=== PATIENT | male | born 1955 | race Caucasian/White ===

== ENCOUNTER 2018-07-17 11:18 | Emergency (ER) | payer MEDICARE, OTHER, SELFPAY ==
[2018-07-17 11:27] VITALS: BP 154/89; PULSE 78; RESP 17; TEMP 36.4; O2SAT 98; BMI 27.6
--- NOTE | 2018-07-17 11:37 | PC.NURSE ---
Pt had sex last night, when condom broke. Pt states his partners has multiple partners. Pt reports he is unsure if she has any disease. Because of the unknown he would like to be treated prophylactic. He isn't concerned about any other STD' just HIV.
--- NOTE | 2018-07-17 12:04 | ED.GENADULT ---
HPI - General Adult <KERRY Alvarado - Last Filed: 07/17/18 21:51> General Chief complaint: Blood/Body fluid exposure Stated complaint: POSSIBLE EXPOSURE HIV Time Seen by Provider: 07/17/18 11:37 Source: patient Mode of arrival: ambulatory Limitations: no limitations History of Present Illness HPI narrative: 63-year-old healthy male that is a nonsmoker here for concern of exposure to HIV. He reports that last night he had a sexual encounter with a woman that he reports is promiscuous with multiple partners as he states that she is a swinger. He denies any knowledge that she has any sexual transmitted diseases. He denies having any symptoms. He is requesting a prophylaxis for HIV. He reports that last night he was having vaginal sex with her when his condom broke. He denies any other sexual encounters or contacts. Related Data Previous Rx's Medication Instructions Recorded dolutegravir 50 mg PO DAILY #28 tab 07/17/18 emtricitabine-tenofovir (TDF) 1 tab PO DAILY #28 tab 07/17/18 [Truvada] Allergies Allergy/AdvReac Type Severity Reaction Status Date / Time hydrocodone AdvReac Unknown NAUSEA/VOMI Verified 07/17/18 12:28 TING Review of Systems <KERRY Alvarado - Last Filed: 07/17/18 21:51> Review of Systems Concern for possible HIV exposure Constitutional Denies chills, Denies fever(s), Denies lethargy and Denies weakness Eyes Denies change in vision, Denies eye discharge, Denies irritation and Denies loss of vision ENT Ears, Nose, Mouth, and Throat: Denies change in voice, Denies neck pain and Denies sore throat Cardiovascular Denies chest pain, Denies irregular heart rhythm, Denies lightheadedness, Denies palpitations, Denies dyspnea, Denies dyspnea on exertion and Denies orthopnea Respiratory Denies cough, Denies dyspnea, Denies dyspnea on exertion and Denies wheezing Gastrointestinal Gastrointestinal: Denies abdominal pain, Denies change in bowel habits, Denies diarrhea, Denies nausea and Denies vomiting Genitourinary Denies hematuria, Denies flank pain, Denies urinary incontinence and Denies urinary urgency Musculoskeletal Denies neck pain Integumentary/Breasts Denies pruritus, Denies erythema, Denies rash and Denies wounds Neurologic Denies confusion, Denies loss of vision and Denies weakness Psychiatric Denies anxiety, Denies confusion, Denies depression, Denies homicidal ideation and Denies suicidal ideation Endocrine Denies palpitations Hematologic/Lymphatic Denies easy bruising Allergic/Immunologic Denies wheezing Exam <KERRY Alvarado - Last Filed: 07/17/18 21:51> Initial Vital Signs Initial Vital Signs: Vital Signs Temperature 97.6 F 07/17/18 11:27 Pulse Rate 78 07/17/18 11:27 Respiratory Rate 17 07/17/18 11:27 Blood Pressure 154/89 H 07/17/18 11:27 Pulse Oximetry 98 07/17/18 11:27 Const General: cooperative and well developed Nutritional Appearance: well nourished Orientation: alert, awake, oriented x3 and not confused HENMT Mouth: oral mucosae normal and moist mucous membranes Eyes General: appearance normal, both eyes and all related structures Eyelids: eyelids normal Conjunctivae: conjunctivae normal Sclera: sclerae normal Pupils: PERRL EOM: EOM intact bilaterally Resp Effort & Inspection: normal respiratory effort, able to speak in complete sentences, no respiratory distress and no use of accessory muscles Auscultation: clear to auscultation bilaterally, no rales, no rhonchi and no wheezes Cardio Rate: regular rate Rhythm: regular rhythm Heart Sounds: no click, no gallops, no murmurs and no rubs Pulses: normal peripheral pulses GI Inspection: non-distended Palpation: soft, no hepatosplenomegaly, No guarding, No pulsatile mass and No tender Auscultation: normal bowel sounds External: normal external exam, uncircumcised, no lacerations and no lesions Penis: normal penis Meatus: meatus normal and no meatla discharge Scrotum: scrotum normal Testes: normal Skin General: no rashes or lesions noted, No jaundice and No petechiae <Shamika Petit DO - Last Filed: 07/18/18 07:49> Initial Vital Signs Initial Vital Signs: Vital Signs Temperature 97.6 F 07/17/18 11:27 Pulse Rate 78 07/17/18 11:27 Respiratory Rate 17 07/17/18 11:27 Blood Pressure 154/89 H 07/17/18 11:27 Pulse Oximetry 98 07/17/18 11:27 Course <KERRY Alvarado - Last Filed: 07/17/18 21:51> Orders Ordered: Discontinued Medications Azithromycin (Zithromax) 1,000 mg PO NOW ONE Stop: 07/17/18 12:22 Last Admin: 07/17/18 13:05 Dose: 1,000 mg Ceftriaxone Sodium (Rocephin) 250 mg IM NOW ONE Stop: 07/17/18 12:22 Last Admin: 07/17/18 13:05 Dose: 250 mg Diphtheria/Tetanus/Acell Pertussis (Adacel) 0.5 ml IM .ONCE ONE Stop: 07/17/18 12:22 Last Admin: 07/17/18 13:05 Dose: 0.5 ml Hepatitis B Vaccine (Engerix-B) 20 mcg IM .ONCE ONE Stop: 07/17/18 12:22 Last Admin: 07/17/18 13:08 Dose: 20 mcg Vital Signs - 8 hr 07/17/18 14:52 Pulse Rate 72 Respiratory Rate 14 Blood Pressure 158/93 H Pulse Oximetry 97 <Shamika Petit DO - Last Filed: 07/18/18 07:49> Orders Ordered: Discontinued Medications Azithromycin (Zithromax) 1,000 mg PO NOW ONE Stop: 07/17/18 12:22 Last Admin: 07/17/18 13:05 Dose: 1,000 mg Ceftriaxone Sodium (Rocephin) 250 mg IM NOW ONE Stop: 07/17/18 12:22 Last Admin: 07/17/18 13:05 Dose: 250 mg Diphtheria/Tetanus/Acell Pertussis (Adacel) 0.5 ml IM .ONCE ONE Stop: 07/17/18 12:22 Last Admin: 07/17/18 13:05 Dose: 0.5 ml Hepatitis B Vaccine (Engerix-B) 20 mcg IM .ONCE ONE Stop: 07/17/18 12:22 Last Admin: 07/17/18 13:08 Dose: 20 mcg Vital Signs - 8 hr 07/17/18 14:52 Pulse Rate 72 Respiratory Rate 14 Blood Pressure 158/93 H Pulse Oximetry 97 Medical Decision Making <KERRY Alvarado - Last Filed: 07/17/18 21:51> Lab Data Result diagrams: 07/17/18 12:48 07/17/18 12:48 Lab Results 0107/17/18 07/17/18 Range/Units 12:40 12:40 12:48 WBC 8.2 (4.5-11.0) X10^3/uL RBC 5.53 (4.5-5.9) X10^6/uL Hgb 16.3 (13.5-17.5) g/dL Hct 48.3 (41-53) % MCV 87.4 (80-100) fL MCH 29.4 (26-34) PG MCHC 33.7 (30-36) % RDW 13.6 (11.6-14.8) % Plt Count 309 (150-400) X10^3/uL Neut % (Auto) 72.2 (50-75) % Lymph % (Auto) 21.1 L (25-40) % [place] % (Auto) 5.6 (3-14) % Eos % (Auto) 0.7 L (2-4) % Baso % (Auto) 0.4 (0-2) % Neut # (Auto) 5900 (8806-0807) /uL Lymph # (Auto) 1700 (0612-9884) /uL [place] # (Auto) 500 (0-900) /uL Eos # (Auto) 100 (0-450) /uL Baso # (Auto) 0 (0-100) /uL Sodium (137-145) mmol/L Potassium (3.4-5.1) mmol/L Chloride (98-107) mmol/L Carbon Dioxide (22-32) mmol/L BUN (9-20) mg/dL Creatinine (0.66-1.25) mg/dL Estimated GFR (>60) mL/min BUN/Creatinine Ratio (6-22) Glucose (80-110) mg/dL Calcium (8.4-10.2) mg/dL Total Bilirubin (0.2-1.3) mg/dL AST (17-59) IU/L ALT (21-72) IU/L Alkaline Phosphatase (38-126) U/L Total Protein (6.3-8.2) g/dL Albumin (3.5-5.0) g/dL Globulin (1.7-4.1) g/dL Albumin/Globulin Ratio (1.0-2.8) Urine Color Yellow Urine Appearance Clear Urine pH 7.5 (4.5-8.0) Ur Specific [place] 1.015 (1.000-1.035) Urine Protein Negative (Negative) Urine Glucose (UA) Negative (Negative) g/dL Urine Ketones Trace H (NEGATIVE) Urine Occult Blood Negative (Negative) Urine Nitrate Negative (Negative) Urine Bilirubin Negative (NEGATIVE) Urine Urobilinogen 0.2 (0.2) E.U./dL Ur Leukocyte Esterase Negative (NEGATIVE) Urine RBC None seen (0-5/HPF) Urine WBC 0-1/hpf (0-5/HPF) Ur Squamous Epith Cells 0-1 /hpf Amorphous Sediment 1+ Urine Bacteria None seen (None) Urine Mucus 2+ H (Negative) Ur Culture Indicated? Cult not indicated Ur Chlamydia DNA (PCR) Not detected Hepatitis C Antibody (NEGATIVE) s/c HIV 1&2 Antibody (NEGATIVE) N gonorrhoeae DNA (PCR) Not detected 07/17/18 07/17/18 Range/Units 12:48 12:48 WBC (4.5-11.0) X10^3/uL RBC (4.5-5.9) X10^6/uL Hgb (13.5-17.5) g/dL Hct (41-53) % MCV (80-100) fL MCH (26-34) PG MCHC (30-36) % RDW (11.6-14.8) % Plt Count (150-400) X10^3/uL Neut % (Auto) (50-75) % Lymph % (Auto) (25-40) % [place] % (Auto) (3-14) % Eos % (Auto) (2-4) % Baso % (Auto) (0-2) % Neut # (Auto) (2331-8957) /uL Lymph # (Auto) (4829-2690) /uL [place] # (Auto) (0-900) /uL Eos # (Auto) (0-450) /uL Baso # (Auto) (0-100) /uL Sodium 141 (137-145) mmol/L Potassium 3.6 (3.4-5.1) mmol/L Chloride 102 (98-107) mmol/L Carbon Dioxide 27 (22-32) mmol/L BUN 11 (9-20) mg/dL Creatinine 1.00 (0.66-1.25) mg/dL Estimated GFR > 60.0 (>60) mL/min BUN/Creatinine Ratio 11.0 (6-22) Glucose 120 H (80-110) mg/dL Calcium 9.7 (8.4-10.2) mg/dL Total Bilirubin 0.9 (0.2-1.3) mg/dL AST 41 (17-59) IU/L ALT 53 (21-72) IU/L Alkaline Phosphatase 84 (38-126) U/L Total Protein 8.6 H (6.3-8.2) g/dL Albumin 5.0 (3.5-5.0) g/dL Globulin 3.6 (1.7-4.1) g/dL Albumin/Globulin Ratio 1.4 (1.0-2.8) Urine Color Urine Appearance Urine pH (4.5-8.0) Ur Specific [place] (1.000-1.035) Urine Protein (Negative) Urine Glucose (UA) (Negative) g/dL Urine Ketones (NEGATIVE) Urine Occult Blood (Negative) Urine Nitrate (Negative) Urine Bilirubin (NEGATIVE) Urine Urobilinogen (0.2) E.U./dL Ur Leukocyte Esterase (NEGATIVE) Urine RBC (0-5/HPF) Urine WBC (0-5/HPF) Ur Squamous Epith Cells Amorphous Sediment Urine Bacteria (None) Urine Mucus (Negative) Ur Culture Indicated? Ur Chlamydia DNA (PCR) Hepatitis C Antibody Negative (NEGATIVE) s/c HIV 1&2 Antibody Negative (NEGATIVE) N gonorrhoeae DNA (PCR) MDM Narrative Medical decision making narrative: CBC and Chem panel were obtained were unremarkable. Urine Chlamydia and gonorrhea was obtained and was negative. HIV antibodies were negative. RPR, hepatitis panel and herpes are pending. Tetanus and Hep b vaccine was given in the emergency room. He was prophylactically treated with azithromycin and Rocephin. Risk benefit discussion of HIV prophylaxis was obtained and patient states that desires to have HIV prophylaxis. HIV prophylaxis is prescribed. He is encouraged to follow up with primary care provider in the next couple weeks for re-evaluation and results of other pending test. For any worsening symptoms return emergency room. <Shamika Petit DO - Last Filed: 07/18/18 07:49> Lab Data Lab Results 07/17/18 07/17/18 07/17/18 Range/Units 12:40 12:40 12:48 WBC 8.2 (4.5-11.0) X10^3/uL RBC 5.53 (4.5-5.9) X10^6/uL Hgb 16.3 (13.5-17.5) g/dL Hct 48.3 (41-53) % MCV 87.4 (80-100) fL MCH 29.4 (26-34) PG MCHC 33.7 (30-36) % RDW 13.6 (11.6-14.8) % Plt Count 309 (150-400) X10^3/uL Neut % (Auto) 72.2 (50-75) % Lymph % (Auto) 21.1 L (25-40) % [place] % (Auto) 5.6 (3-14) % Eos % (Auto) 0.7 L (2-4) % Baso % (Auto) 0.4 (0-2) % Neut # (Auto) 5900 (2891-6959) /uL Lymph # (Auto) 1700 (1161-5471) /uL [place] # (Auto) 500 (0-900) /uL Eos # (Auto) 100 (0-450) /uL Baso # (Auto) 0 (0-100) /uL Sodium (137-145) mmol/L Potassium (3.4-5.1) mmol/L Chloride (98-107) mmol/L Carbon Dioxide (22-32) mmol/L BUN (9-20) mg/dL Creatinine (0.66-1.25) mg/dL Estimated GFR (>60) mL/min BUN/Creatinine Ratio (6-22) Glucose (80-110) mg/dL Calcium (8.4-10.2) mg/dL Total Bilirubin (0.2-1.3) mg/dL AST (17-59) IU/L ALT (21-72) IU/L Alkaline Phosphatase (38-126) U/L Total Protein (6.3-8.2) g/dL Albumin (3.5-5.0) g/dL Globulin (1.7-4.1) g/dL Albumin/Globulin Ratio (1.0-2.8) Urine Color Yellow Urine Appearance Clear Urine pH 7.5 (4.5-8.0) Ur Specific [place] 1.015 (1.000-1.035) Urine Protein Negative (Negative) Urine Glucose (UA) Negative (Negative) g/dL Urine Ketones Trace H (NEGATIVE) Urine Occult Blood Negative (Negative) Urine Nitrate Negative (Negative) Urine Bilirubin Negative (NEGATIVE) Urine Urobilinogen 0.2 (0.2) E.U./dL Ur Leukocyte Esterase Negative (NEGATIVE) Urine RBC None seen (0-5/HPF) Urine WBC 0-1/hpf (0-5/HPF) Ur Squamous Epith Cells 0-1 /hpf Amorphous Sediment 1+ Urine Bacteria None seen (None) Urine Mucus 2+ H (Negative) Ur Culture Indicated? Cult not indicated Ur Chlamydia DNA (PCR) Not detected Hepatitis C Antibody (NEGATIVE) s/c HIV 1&2 Antibody (NEGATIVE) N gonorrhoeae DNA (PCR) Not detected 07/17/18 07/17/18 Range/Units 12:48 12:48 WBC (4.5-11.0) X10^3/uL RBC (4.5-5.9) X10^6/uL Hgb (13.5-17.5) g/dL Hct (41-53) % MCV (80-100) fL MCH (26-34) PG MCHC (30-36) % RDW (11.6-14.8) % Plt Count (150-400) X10^3/uL Neut % (Auto) (50-75) % Lymph % (Auto) (25-40) % [place] % (Auto) (3-14) % Eos % (Auto) (2-4) % Baso % (Auto) (0-2) % Neut # (Auto) (2783-4650) /uL Lymph # (Auto) (7265-4163) /uL [place] # (Auto) (0-900) /uL Eos # (Auto) (0-450) /uL Baso # (Auto) (0-100) /uL Sodium 141 (137-145) mmol/L Potassium 3.6 (3.4-5.1) mmol/L Chloride 102 (98-107) mmol/L Carbon Dioxide 27 (22-32) mmol/L BUN 11 (9-20) mg/dL Creatinine 1.00 (0.66-1.25) mg/dL Estimated GFR > 60.0 (>60) mL/min BUN/Creatinine Ratio 11.0 (6-22) Glucose 120 H (80-110) mg/dL Calcium 9.7 (8.4-10.2) mg/dL Total Bilirubin 0.9 (0.2-1.3) mg/dL AST 41 (17-59) IU/L ALT 53 (21-72) IU/L Alkaline Phosphatase 84 (38-126) U/L Total Protein 8.6 H (6.3-8.2) g/dL Albumin 5.0 (3.5-5.0) g/dL Globulin 3.6 (1.7-4.1) g/dL Albumin/Globulin Ratio 1.4 (1.0-2.8) Urine Color Urine Appearance Urine pH (4.5-8.0) Ur Specific [place] (1.000-1.035) Urine Protein (Negative) Urine Glucose (UA) (Negative) g/dL Urine Ketones (NEGATIVE) Urine Occult Blood (Negative) Urine Nitrate (Negative) Urine Bilirubin (NEGATIVE) Urine Urobilinogen (0.2) E.U./dL Ur Leukocyte Esterase (NEGATIVE) Urine RBC (0-5/HPF) Urine WBC (0-5/HPF) Ur Squamous Epith Cells Amorphous Sediment Urine Bacteria (None) Urine Mucus (Negative) Ur Culture Indicated? Ur Chlamydia DNA (PCR) Hepatitis C Antibody Negative (NEGATIVE) s/c HIV 1&2 Antibody Negative (NEGATIVE) N gonorrhoeae DNA (PCR) Discharge Plan Departure Patient Disposition: Home Clinical Impression: Concern about STD in male without diagnosis Discharge Date/Time: 07/17/18 15:02 Interventions: ED Discharge Assessment Last Done: 07/17/18 14:52 Instructions: Facts About Sexually Transmitted Infections Activity Restrictions/Additional Instructions: Laboratory results today are unremarkable. Year given a prophylactic antibiotics for gonorrhea and chlamydia today in the emergency room. You also given a vaccine for hepatitis-B and tetanus. Follow up with primary care provider later this week for re-evaluation and results of other tests that are currently pending. Prescription for HIV prophylaxis is given for to medications for 28 days use as directed. For any worsening symptoms return emergency room. Prescriptions: New emtricitabine-tenofovir (TDF) [Truvada] 200-300 mg tablet 1 tab PO DAILY Qty: 28 RF: 0 dolutegravir 50 mg tablet 50 mg PO DAILY Qty: 28 RF: 0 Referrals: [facility] [Provider Group] <Shamika Petit DO - Last Filed: 07/18/18 07:49> Cosign ED Attending Cosignature Attestation: I was immediately available in the department for consultation. This documentation has been reviewed and I agree with assessment and plan. Supervised by Shamika Petit DO
[2018-07-17 12:52] LABS: Bacteria Urine None Seen; RBC Urine None Seen (0-5/HPF)
[2018-07-17 12:54] LABS: Add Manual Diff / Slide Review NO; Basophils Absolute Auto 0 /uL (0-100); Basophils Percent Auto 0.4 % (0-2); Eosinophils Absolute Auto 100 /uL (0-450); Eosinophils Percent Auto 0.7 % (2-4); Hematocrit 48.3 % (41-53); Hemoglobin 16.3 g/dL (13.5-17.5); Lymphocytes Absolute Auto 1700 /uL (1100-4500); Lymphocytes Percent Auto 21.1 % (25-40); Mean Corpuscular HGB Conc 33.7 % (30-36); Mean Corpuscular Hemoglobin 29.4 PG (26-34); Mean Corpuscular Volume 87.4 fL (80-100); Monocytes Absolute Auto 500 /uL (0-900); Monocytes Percent Auto 5.6 % (3-14); Neutrophils Absolute Auto 5900 /uL (1500-7000); Neutrophils Percent Auto 72.2 % (50-75); Platelet Count 309 X10^3/uL (150-400); Red Blood Cell Count 5.53 X10^6/uL (4.5-5.9); Red Cell Distribution Width 13.6 % (11.6-14.8); White Blood Cell Count 8.2 X10^3/uL (4.5-11.0)
[2018-07-17 12:55] LABS: Appearance Urine UA CLEAR; Bilirubin Urine UA NEGATIVE (NEGATIVE); Color Urine UA YELLOW; Glucose Urine UA NEGATIVE (Negative); Ketones Urine UA TRACE (NEGATIVE); Leukocyte Esterase Urine UA NEGATIVE (NEGATIVE); Nitrite Urine UA NEGATIVE (Negative); Occult Blood Urine UA NEGATIVE (Negative); Protein Urine UA NEGATIVE (Negative); Specific Gravity Urine UA 1.015 (1.000-1.035); Urobilinogen Urine UA 0.2 E.U./dL (0.2); pH Urine UA 7.5 (4.5-8.0)
[2018-07-17 13:01] LABS: Alanine Aminotransferase 53 IU/L (21-72); Albumin Globulin Ratio 1.4 (1.0-2.8); Alkaline Phosphatase 84 U/L (38-126); Aspartate Aminotransferase 41 IU/L (17-59); Bilirubin Total 0.9 mg/dL (0.2-1.3); Blood Urea Nitrogen 11 mg/dL (9-20); Calcium 9.7 mg/dL (8.4-10.2); Carbon Dioxide 27 mmol/L (22-32); Chloride 102 mmol/L (98-107); Estimated Glomerular Filt Rate > 60.0 mL/min (>60); Globulin 3.6 g/dL (1.7-4.1); Glucose 120 mg/dL (80-110); HEMOLYSIS < 15 (0-50); Potassium 3.6 mmol/L (3.4-5.1); Sodium 141 mmol/L (137-145); Total Protein 8.6 g/dL (6.3-8.2)
[2018-07-17 13:02] LABS: Amorphous Sediment Urine 1+; Squamous Epithelial Cell Urine 0-1 /HPF; WBC Urine 0-1/HPF (0-5/HPF)
[2018-07-17 13:03] LABS: Culture Indicated Urine Cult Not Indicated; Mucus Urine 2+ (Negative)
[2018-07-17] MEDS: TET,DIPH,PERTUSS(ACELL),VAC/PF 0.5 ML SYRINGE IM (13:05)
[2018-07-17] MEDS: AZITHROMYCIN 250 MG TABLET 1000 MG PO (13:05)
[2018-07-17] MEDS: cefTRIAXone 500 MG VIAL 250 MG IM (13:05)
[2018-07-17] MEDS: HEPATITIS B VAC (ENGERIX-B) 10 MCG/0.5 ML VIAL 20 MCG IM (13:08)
[2018-07-17 14:02] LABS: HIV 1 and 2 Antibody NEGATIVE (NEGATIVE); Hep C Virus Ab w/Reflex Quant NEGATIVE s/c (NEGATIVE)
[2018-07-17 14:25] LABS: Urine N gonorrhoeae NOT DETECTED
--- NOTE | 2018-07-17 14:26 | ED_ITS ---
HPI - General Adult <KERRY Alvarado - Last Filed: 07/17/18 21:51> General Chief complaint: Blood/Body fluid exposure Stated complaint: POSSIBLE EXPOSURE HIV Time Seen by Provider: 07/17/18 11:37 Source: patient Mode of arrival: ambulatory Limitations: no limitations History of Present Illness HPI narrative: 63-year-old healthy male that is a nonsmoker here for concern of exposure to HIV. He reports that last night he had a sexual encounter with a woman that he reports is promiscuous with multiple partners as he states that she is a swinger. He denies any knowledge that she has any sexual transmitted diseases. He denies having any symptoms. He is requesting a prophylaxis for HIV. He reports that last night he was having vaginal sex with her when his condom broke. He denies any other sexual encounters or contacts. Related Data Previous Rx's Medication Instructions Recorded dolutegravir 50 mg PO DAILY #28 tab 07/17/18 emtricitabine-tenofovir (TDF) 1 tab PO DAILY #28 tab 07/17/18 [Truvada] Allergies Allergy/AdvReac Type Severity Reaction Status Date / Time hydrocodone AdvReac Unknown NAUSEA/VOMI Verified 07/17/18 12:28 TING Review of Systems <KERRY Alvarado - Last Filed: 07/17/18 21:51> Review of Systems Concern for possible HIV exposure Constitutional Denies chills, Denies fever(s), Denies lethargy and Denies weakness Eyes Denies change in vision, Denies eye discharge, Denies irritation and Denies loss of vision ENT Ears, Nose, Mouth, and Throat: Denies change in voice, Denies neck pain and Denies sore throat Cardiovascular Denies chest pain, Denies irregular heart rhythm, Denies lightheadedness, Denies palpitations, Denies dyspnea, Denies dyspnea on exertion and Denies orthopnea Respiratory Denies cough, Denies dyspnea, Denies dyspnea on exertion and Denies wheezing Gastrointestinal Gastrointestinal: Denies abdominal pain, Denies change in bowel habits, Denies diarrhea, Denies nausea and Denies vomiting Genitourinary Denies hematuria, Denies flank pain, Denies urinary incontinence and Denies urinary urgency Musculoskeletal Denies neck pain Integumentary/Breasts Denies pruritus, Denies erythema, Denies rash and Denies wounds Neurologic Denies confusion, Denies loss of vision and Denies weakness Psychiatric Denies anxiety, Denies confusion, Denies depression, Denies homicidal ideation and Denies suicidal ideation Endocrine Denies palpitations Hematologic/Lymphatic Denies easy bruising Allergic/Immunologic Denies wheezing Exam <KERRY Alvarado - Last Filed: 07/17/18 21:51> Initial Vital Signs Initial Vital Signs: Vital Signs Temperature 97.6 F 07/17/18 11:27 Pulse Rate 78 07/17/18 11:27 Respiratory Rate 17 07/17/18 11:27 Blood Pressure 154/89 H 07/17/18 11:27 Pulse Oximetry 98 07/17/18 11:27 Const General: cooperative and well developed Nutritional Appearance: well nourished Orientation: alert, awake, oriented x3 and not confused HENMT Mouth: oral mucosae normal and moist mucous membranes Eyes General: appearance normal, both eyes and all related structures Eyelids: eyelids normal Conjunctivae: conjunctivae normal Sclera: sclerae normal Pupils: PERRL EOM: EOM intact bilaterally Resp Effort & Inspection: normal respiratory effort, able to speak in complete sentences, no respiratory distress and no use of accessory muscles Auscultation: clear to auscultation bilaterally, no rales, no rhonchi and no wheezes Cardio Rate: regular rate Rhythm: regular rhythm Heart Sounds: no click, no gallops, no murmurs and no rubs Pulses: normal peripheral pulses GI Inspection: non-distended Palpation: soft, no hepatosplenomegaly, No guarding, No pulsatile mass and No tender Auscultation: normal bowel sounds External: normal external exam, uncircumcised, no lacerations and no lesions Penis: normal penis Meatus: meatus normal and no meatla discharge Scrotum: scrotum normal Testes: normal Skin General: no rashes or lesions noted, No jaundice and No petechiae <Shamika Petit DO - Last Filed: 07/18/18 07:49> Initial Vital Signs Initial Vital Signs: Vital Signs Temperature 97.6 F 07/17/18 11:27 Pulse Rate 78 07/17/18 11:27 Respiratory Rate 17 07/17/18 11:27 Blood Pressure 154/89 H 07/17/18 11:27 Pulse Oximetry 98 07/17/18 11:27 Course <KERRY Alvarado - Last Filed: 07/17/18 21:51> Orders Ordered: Discontinued Medications Azithromycin (Zithromax) 1,000 mg PO NOW ONE Stop: 07/17/18 12:22 Last Admin: 07/17/18 13:05 Dose: 1,000 mg Ceftriaxone Sodium (Rocephin) 250 mg IM NOW ONE Stop: 07/17/18 12:22 Last Admin: 07/17/18 13:05 Dose: 250 mg Diphtheria/Tetanus/Acell Pertussis (Adacel) 0.5 ml IM .ONCE ONE Stop: 07/17/18 12:22 Last Admin: 07/17/18 13:05 Dose: 0.5 ml Hepatitis B Vaccine (Engerix-B) 20 mcg IM .ONCE ONE Stop: 07/17/18 12:22 Last Admin: 07/17/18 13:08 Dose: 20 mcg Vital Signs - 8 hr 07/17/18 14:52 Pulse Rate 72 Respiratory Rate 14 Blood Pressure 158/93 H Pulse Oximetry 97 <Shamika Petit DO - Last Filed: 07/18/18 07:49> Orders Ordered: Discontinued Medications Azithromycin (Zithromax) 1,000 mg PO NOW ONE Stop: 07/17/18 12:22 Last Admin: 07/17/18 13:05 Dose: 1,000 mg Ceftriaxone Sodium (Rocephin) 250 mg IM NOW ONE Stop: 07/17/18 12:22 Last Admin: 07/17/18 13:05 Dose: 250 mg Diphtheria/Tetanus/Acell Pertussis (Adacel) 0.5 ml IM .ONCE ONE Stop: 07/17/18 12:22 Last Admin: 07/17/18 13:05 Dose: 0.5 ml Hepatitis B Vaccine (Engerix-B) 20 mcg IM .ONCE ONE Stop: 07/17/18 12:22 Last Admin: 07/17/18 13:08 Dose: 20 mcg Vital Signs - 8 hr 07/17/18 14:52 Pulse Rate 72 Respiratory Rate 14 Blood Pressure 158/93 H Pulse Oximetry 97 Medical Decision Making <KERRY Alvarado - Last Filed: 07/17/18 21:51> Lab Data Result diagrams: 07/17/18 12:48 07/17/18 12:48 Lab Results 0107/17/18 07/17/18 Range/Units 12:40 12:40 12:48 WBC 8.2 (4.5-11.0) X10^3/uL RBC 5.53 (4.5-5.9) X10^6/uL Hgb 16.3 (13.5-17.5) g/dL Hct 48.3 (41-53) % MCV 87.4 (80-100) fL MCH 29.4 (26-34) PG MCHC 33.7 (30-36) % RDW 13.6 (11.6-14.8) % Plt Count 309 (150-400) X10^3/uL Neut % (Auto) 72.2 (50-75) % Lymph % (Auto) 21.1 L (25-40) % [place] % (Auto) 5.6 (3-14) % Eos % (Auto) 0.7 L (2-4) % Baso % (Auto) 0.4 (0-2) % Neut # (Auto) 5900 (2923-3862) /uL Lymph # (Auto) 1700 (4335-9378) /uL [place] # (Auto) 500 (0-900) /uL Eos # (Auto) 100 (0-450) /uL Baso # (Auto) 0 (0-100) /uL Sodium (137-145) mmol/L Potassium (3.4-5.1) mmol/L Chloride (98-107) mmol/L Carbon Dioxide (22-32) mmol/L BUN (9-20) mg/dL Creatinine (0.66-1.25) mg/dL Estimated GFR (>60) mL/min BUN/Creatinine Ratio (6-22) Glucose (80-110) mg/dL Calcium (8.4-10.2) mg/dL Total Bilirubin (0.2-1.3) mg/dL AST (17-59) IU/L ALT (21-72) IU/L Alkaline Phosphatase (38-126) U/L Total Protein (6.3-8.2) g/dL Albumin (3.5-5.0) g/dL Globulin (1.7-4.1) g/dL Albumin/Globulin Ratio (1.0-2.8) Urine Color Yellow Urine Appearance Clear Urine pH 7.5 (4.5-8.0) Ur Specific [place] 1.015 (1.000-1.035) Urine Protein Negative (Negative) Urine Glucose (UA) Negative (Negative) g/dL Urine Ketones Trace H (NEGATIVE) Urine Occult Blood Negative (Negative) Urine Nitrate Negative (Negative) Urine Bilirubin Negative (NEGATIVE) Urine Urobilinogen 0.2 (0.2) E.U./dL Ur Leukocyte Esterase Negative (NEGATIVE) Urine RBC None seen (0-5/HPF) Urine WBC 0-1/hpf (0-5/HPF) Ur Squamous Epith Cells 0-1 /hpf Amorphous Sediment 1+ Urine Bacteria None seen (None) Urine Mucus 2+ H (Negative) Ur Culture Indicated? Cult not indicated Ur Chlamydia DNA (PCR) Not detected Hepatitis C Antibody (NEGATIVE) s/c HIV 1&2 Antibody (NEGATIVE) N gonorrhoeae DNA (PCR) Not detected 07/17/18 07/17/18 Range/Units 12:48 12:48 WBC (4.5-11.0) X10^3/uL RBC (4.5-5.9) X10^6/uL Hgb (13.5-17.5) g/dL Hct (41-53) % MCV (80-100) fL MCH (26-34) PG MCHC (30-36) % RDW (11.6-14.8) % Plt Count (150-400) X10^3/uL Neut % (Auto) (50-75) % Lymph % (Auto) (25-40) % [place] % (Auto) (3-14) % Eos % (Auto) (2-4) % Baso % (Auto) (0-2) % Neut # (Auto) (8043-0011) /uL Lymph # (Auto) (0745-3771) /uL [place] # (Auto) (0-900) /uL Eos # (Auto) (0-450) /uL Baso # (Auto) (0-100) /uL Sodium 141 (137-145) mmol/L Potassium 3.6 (3.4-5.1) mmol/L Chloride 102 (98-107) mmol/L Carbon Dioxide 27 (22-32) mmol/L BUN 11 (9-20) mg/dL Creatinine 1.00 (0.66-1.25) mg/dL Estimated GFR > 60.0 (>60) mL/min BUN/Creatinine Ratio 11.0 (6-22) Glucose 120 H (80-110) mg/dL Calcium 9.7 (8.4-10.2) mg/dL Total Bilirubin 0.9 (0.2-1.3) mg/dL AST 41 (17-59) IU/L ALT 53 (21-72) IU/L Alkaline Phosphatase 84 (38-126) U/L Total Protein 8.6 H (6.3-8.2) g/dL Albumin 5.0 (3.5-5.0) g/dL Globulin 3.6 (1.7-4.1) g/dL Albumin/Globulin Ratio 1.4 (1.0-2.8) Urine Color Urine Appearance Urine pH (4.5-8.0) Ur Specific [place] (1.000-1.035) Urine Protein (Negative) Urine Glucose (UA) (Negative) g/dL Urine Ketones (NEGATIVE) Urine Occult Blood (Negative) Urine Nitrate (Negative) Urine Bilirubin (NEGATIVE) Urine Urobilinogen (0.2) E.U./dL Ur Leukocyte Esterase (NEGATIVE) Urine RBC (0-5/HPF) Urine WBC (0-5/HPF) Ur Squamous Epith Cells Amorphous Sediment Urine Bacteria (None) Urine Mucus (Negative) Ur Culture Indicated? Ur Chlamydia DNA (PCR) Hepatitis C Antibody Negative (NEGATIVE) s/c HIV 1&2 Antibody Negative (NEGATIVE) N gonorrhoeae DNA (PCR) MDM Narrative Medical decision making narrative: CBC and Chem panel were obtained were unremarkable. Urine Chlamydia and gonorrhea was obtained and was negative. HIV antibodies were negative. RPR, hepatitis panel and herpes are pending. Tetanus and Hep b vaccine was given in the emergency room. He was prophylactically treated with azithromycin and Rocephin. Risk benefit discussion of HIV prophylaxis was obtained and patient states that desires to have HIV prophylaxis. HIV prophylaxis is prescribed. He is encouraged to follow up with primary care provider in the next couple weeks for re-evaluation and results of other pending test. For any worsening symptoms return emergency room. <Shamika Petit DO - Last Filed: 07/18/18 07:49> Lab Data Lab Results 07/17/18 07/17/18 07/17/18 Range/Units 12:40 12:40 12:48 WBC 8.2 (4.5-11.0) X10^3/uL RBC 5.53 (4.5-5.9) X10^6/uL Hgb 16.3 (13.5-17.5) g/dL Hct 48.3 (41-53) % MCV 87.4 (80-100) fL MCH 29.4 (26-34) PG MCHC 33.7 (30-36) % RDW 13.6 (11.6-14.8) % Plt Count 309 (150-400) X10^3/uL Neut % (Auto) 72.2 (50-75) % Lymph % (Auto) 21.1 L (25-40) % [place] % (Auto) 5.6 (3-14) % Eos % (Auto) 0.7 L (2-4) % Baso % (Auto) 0.4 (0-2) % Neut # (Auto) 5900 (9280-0506) /uL Lymph # (Auto) 1700 (1402-1748) /uL [place] # (Auto) 500 (0-900) /uL Eos # (Auto) 100 (0-450) /uL Baso # (Auto) 0 (0-100) /uL Sodium (137-145) mmol/L Potassium (3.4-5.1) mmol/L Chloride (98-107) mmol/L Carbon Dioxide (22-32) mmol/L BUN (9-20) mg/dL Creatinine (0.66-1.25) mg/dL Estimated GFR (>60) mL/min BUN/Creatinine Ratio (6-22) Glucose (80-110) mg/dL Calcium (8.4-10.2) mg/dL Total Bilirubin (0.2-1.3) mg/dL AST (17-59) IU/L ALT (21-72) IU/L Alkaline Phosphatase (38-126) U/L Total Protein (6.3-8.2) g/dL Albumin (3.5-5.0) g/dL Globulin (1.7-4.1) g/dL Albumin/Globulin Ratio (1.0-2.8) Urine Color Yellow Urine Appearance Clear Urine pH 7.5 (4.5-8.0) Ur Specific [place] 1.015 (1.000-1.035) Urine Protein Negative (Negative) Urine Glucose (UA) Negative (Negative) g/dL Urine Ketones Trace H (NEGATIVE) Urine Occult Blood Negative (Negative) Urine Nitrate Negative (Negative) Urine Bilirubin Negative (NEGATIVE) Urine Urobilinogen 0.2 (0.2) E.U./dL Ur Leukocyte Esterase Negative (NEGATIVE) Urine RBC None seen (0-5/HPF) Urine WBC 0-1/hpf (0-5/HPF) Ur Squamous Epith Cells 0-1 /hpf Amorphous Sediment 1+ Urine Bacteria None seen (None) Urine Mucus 2+ H (Negative) Ur Culture Indicated? Cult not indicated Ur Chlamydia DNA (PCR) Not detected Hepatitis C Antibody (NEGATIVE) s/c HIV 1&2 Antibody (NEGATIVE) N gonorrhoeae DNA (PCR) Not detected 07/17/18 07/17/18 Range/Units 12:48 12:48 WBC (4.5-11.0) X10^3/uL RBC (4.5-5.9) X10^6/uL Hgb (13.5-17.5) g/dL Hct (41-53) % MCV (80-100) fL MCH (26-34) PG MCHC (30-36) % RDW (11.6-14.8) % Plt Count (150-400) X10^3/uL Neut % (Auto) (50-75) % Lymph % (Auto) (25-40) % [place] % (Auto) (3-14) % Eos % (Auto) (2-4) % Baso % (Auto) (0-2) % Neut # (Auto) (2790-4266) /uL Lymph # (Auto) (4192-7526) /uL [place] # (Auto) (0-900) /uL Eos # (Auto) (0-450) /uL Baso # (Auto) (0-100) /uL Sodium 141 (137-145) mmol/L Potassium 3.6 (3.4-5.1) mmol/L Chloride 102 (98-107) mmol/L Carbon Dioxide 27 (22-32) mmol/L BUN 11 (9-20) mg/dL Creatinine 1.00 (0.66-1.25) mg/dL Estimated GFR > 60.0 (>60) mL/min BUN/Creatinine Ratio 11.0 (6-22) Glucose 120 H (80-110) mg/dL Calcium 9.7 (8.4-10.2) mg/dL Total Bilirubin 0.9 (0.2-1.3) mg/dL AST 41 (17-59) IU/L ALT 53 (21-72) IU/L Alkaline Phosphatase 84 (38-126) U/L Total Protein 8.6 H (6.3-8.2) g/dL Albumin 5.0 (3.5-5.0) g/dL Globulin 3.6 (1.7-4.1) g/dL Albumin/Globulin Ratio 1.4 (1.0-2.8) Urine Color Urine Appearance Urine pH (4.5-8.0) Ur Specific [place] (1.000-1.035) Urine Protein (Negative) Urine Glucose (UA) (Negative) g/dL Urine Ketones (NEGATIVE) Urine Occult Blood (Negative) Urine Nitrate (Negative) Urine Bilirubin (NEGATIVE) Urine Urobilinogen (0.2) E.U./dL Ur Leukocyte Esterase (NEGATIVE) Urine RBC (0-5/HPF) Urine WBC (0-5/HPF) Ur Squamous Epith Cells Amorphous Sediment Urine Bacteria (None) Urine Mucus (Negative) Ur Culture Indicated? Ur Chlamydia DNA (PCR) Hepatitis C Antibody Negative (NEGATIVE) s/c HIV 1&2 Antibody Negative (NEGATIVE) N gonorrhoeae DNA (PCR) Discharge Plan Departure Patient Disposition: Home Clinical Impression: Concern about STD in male without diagnosis Discharge Date/Time: 07/17/18 15:02 Interventions: ED Discharge Assessment Last Done: 07/17/18 14:52 Instructions: Facts About Sexually Transmitted Infections Activity Restrictions/Additional Instructions: Laboratory results today are unremarkable. Year given a prophylactic antibiotics for gonorrhea and chlamydia today in the emergency room. You also given a vaccine for hepatitis-B and tetanus. Follow up with primary care provider later this week for re-evaluation and results of other tests that are currently pending. Prescription for HIV prophylaxis is given for to medications for 28 days use as directed. For any worsening symptoms return emergency room. Prescriptions: New emtricitabine-tenofovir (TDF) [Truvada] 200-300 mg tablet 1 tab PO DAILY Qty: 28 RF: 0 dolutegravir 50 mg tablet 50 mg PO DAILY Qty: 28 RF: 0 Referrals: [facility] [Provider Group] <Shamika Petit DO - Last Filed: 07/18/18 07:49> Cosign ED Attending Cosignature Attestation: I was immediately available in the department for consultation. This documentation has been reviewed and I agree with assessment and plan. Supervised by Shamika Petit DO
[2018-07-17 14:27] LABS: Urine Chlamydia NOT DETECTED
[2018-07-17 14:52] VITALS: BP 158/93; PULSE 72; RESP 14; O2SAT 97
[2018-07-20 13:14] LABS: HSV 1 IgM Screen Negative (Negative); HSV 2 IgM Screen Negative (Negative)
[2018-07-20 14:45] LABS: Hepatitis B Surf Ab Qualitativ Nonreactive (Nonreactive)
[2018-07-20 16:00] LABS: RPR Screen Nonreactive (Nonreactive)
== END 2018-07-17 15:02 | disposition home or self-care (01) ==
PROVIDERS: Emergency Medicine; Emergency Provider Nurse Practitioner Family
DX: Z20.2 Contact with and (suspected) exposure to infections with a predominantly sexual mode of transmission (principal)
CPT/HCPCS: 36415; 80053; 81001; 85025; 86592; 86694; 86703; 86706; 86803; 87491; 87591; 90471; 90472; 90746; 96372; 99282; 99283; 90715; J0696

== ENCOUNTER → 2019-04-25 07:49 | Outpatient (CLI) | payer MEDICARE, OTHER, SELFPAY ==
--- NOTE | 2019-04-25 | DI.MRI.S_ITS ---
PROCEDURE: MR KNEE LT WO CON INDICATIONS: Pain in left knee TECHNIQUE: Noncontrast sagittal PD fast spin echo and T2 fast spin echo with fat saturation, sagittal 3-D FLASH with fat saturation; coronal T1 spin echo and PD fast spin echo with fat saturation, and axial PD fast spin echo with fat saturation through the knee. COMPARISON: None. FINDINGS: Image quality: Excellent. Menisci: Medial meniscal tear involving the body and posterior horn with marked truncation of free margin and abnormal signal extending to the undersurface. Lateral meniscus intact. Cruciate ligaments: Anterior cruciate ligament appears intact. Posterior cruciate ligament appears intact. Medial structures: The medial collateral ligament appears intact. Semimembranosus tendon appears intact. Visualized portions of the pes anserinus tendons appear normal. No abnormal bursal fluid. Lateral structures: The lateral collateral ligament demonstrates thickening and intrasubstance signal change in keeping with low grade sprain, statistically chronic, although technically age indeterminate. Biceps femoris tendon appears intact. Popliteus tendon grossly unremarkable. Iliotibial band appears intact. Anterior structures: Prepatellar and superficial infrapatellar subcutaneous edema/fluid. Quadriceps tendon intact. Medial and lateral patellofemoral ligaments intact. Patellar tendon appears intact. Hoffa's fat pad unremarkable. Bones and cartilage: No focal marrow contusion or discrete low signal fracture line. Within the medial compartment, diffuse partial-thickness loss of the femoral and tibial cartilage with subchondral marrow edema/early cystic change in the femoral condyle Within the lateral compartment, intrasubstance signal change of the tibial articular cartilage with underlying subchondral marrow edema. The femoral cartilage demonstrates no definite focal defect. Within the patellofemoral compartment, no focal articular cartilage defect Joint space: No pathologic joint effusion. Small Lawton cyst measuring 2 cm in the cephalocaudad dimension No specific evidence of intra-articular loose body. IMPRESSION: Medial meniscal tear involving body and posterior horn tear. Prepatellar and superficial infrapatellar subcutaneous edema/fluid. Degenerative joint disease as above, most pronounced within the medial compartment Small Lawton's cyst. Dictated by: Mark Figueroa M.D. on 04/25/2019 at 11:01 Approved by: Mark Figueroa M.D. on 04/25/2019 at 11:11
== END ==
PROVIDERS: Visit Provider Physician Assistant Medical
DX: M25.562 Pain in left knee (principal); S83.242A Other tear of medial meniscus, current injury, left knee, initial encounter; M17.12 Unilateral primary osteoarthritis, left knee; M71.22 Synovial cyst of popliteal space [Baker], left knee; R26.81 Unsteadiness on feet
CPT/HCPCS: 73721

== ENCOUNTER → 2020-03-28 10:04 | Outpatient (CLI) | payer MEDICARE, OTHER, SELFPAY ==
--- NOTE | 2020-03-28 10:07 | DI.RAD.S_ITS ---
PROCEDURE: XR WRIST RT 2V INDICATIONS: RIGHT WRIST PAIN TECHNIQUE: To views of the wrist were acquired. COMPARISON: None. FINDINGS: Bones: No fractures or dislocations. No suspicious bony lesions. Scaphoid view: Not requested. Soft tissues: No suspicious soft tissue calcifications. IMPRESSION: No fracture. No osseous lesion. If symptoms and/or clinical suspicion for pathology persists, further assessment with repeat radiographs (7-10 days) or advanced imaging (e.g. CT, MRI or bone scan) may be helpful. Dictated by: Lizet Hancock MD, PhD on 03/28/2020 at 17:25 Approved by: Lizet Hancock MD, PhD on 03/28/2020 at 17:25
--- NOTE | 2020-03-28 10:07 | DI.RAD.S_ITS ---
PROCEDURE: XR HAND RT 2V INDICATIONS: RIGHT WRIST PAIN TECHNIQUE: To views of the hand(s) acquired. COMPARISON: None. FINDINGS: Bones: No fractures or dislocations. Carpal bones are normally aligned. No suspicious bony lesions. Soft tissues: No suspicious soft tissue calcifications. IMPRESSION: No fracture. No osseous lesion. If symptoms and/or clinical suspicion for pathology persists, further assessment with repeat radiographs (7-10 days) or advanced imaging (e.g. CT, MRI or bone scan) may be helpful. Dictated by: Lizet Hancock MD, PhD on 03/28/2020 at 17:25 Approved by: Lizet Hancock MD, PhD on 03/28/2020 at 17:26
== END ==
PROVIDERS: PCP Physician Assistant Medical; Referring Provider Physician Assistant Medical; Visit Provider Physician Assistant Medical
DX: M25.531 Pain in right wrist (principal)
CPT/HCPCS: 73100; 73120

== ENCOUNTER → 2020-06-03 14:30 | Outpatient (CLI) | payer MEDICARE, OTHER, SELFPAY ==
[2020-06-03 15:19] LABS: COVID19 -Nasal RAPID Negative (Negative)
== END ==
PROVIDERS: PCP Physician Assistant Medical; Visit Provider Physician Assistant
DX: Z11.59 Encounter for screening for other viral diseases (principal)
CPT/HCPCS: 87635

== ENCOUNTER 2020-06-05 09:18 | Day surgery (SDC) | payer MEDICARE, OTHER, SELFPAY ==
[2020-06-05] VITALS (7 sets, daily range): BP systolic 124–153; BP diastolic 76–87; PULSE 67–80; RESP 12–17; TEMP 36.1–36.9; O2SAT 95–98; BMI 25.2
--- NOTE | 2020-06-05 | PATH_ITS ---
[facility] Accession Number: [id number] . 01 Material submitted: . PART A: gastrointestinal site - STOMACH PART B: body - NO SITE DESIGNATED . 01 Clinical history: . SDC A: RULE OUT HP B: EOE . 02 Diagnosis: A. Stomach, Biopsy: Gastric antral mucosa with mild chronic inflammation. Negative for Helicobacter organisms by immunohistochemistry. Negative for intestinal metaplasia. Negative for dysplasia or malignancy. . B. Esophagus, Biopsy: Squamous epithelium with mild reactive features of reflux esophagitis. Intraepithelial eosinophils are not increased. Negative for fungal organisms on AB/PAS stain. Negative for dysplasia or malignancy. [facility] 06/10/2020 1404 Local . 02 Electronically signed: . Constantin Lopez MD, PhD, Pathologist NPI- [id number] . 01 Gross description: . Part A: STOMACH: Received in formalin are 2 fragment(s) of sherman, soft tissue measuring 0.3 x 0.3 x 0.2 cm to 0.2 x 0.1 x 0.1 cm submitted entirely in 1 cassette(s) Part B: NO SITE DESIGNATED: Received in formalin are 2 fragment(s) of sherman, soft tissue measuring 0.4 x 0.2 x 0.1 cm to 0.2 x 0.2 x 0.1 cm submitted entirely in 1 cassette(s) /QBJ 06/06/2020 0636 Local . 02 Microscopic: . A) An immunohistochemical stain was performed to evaluate for Helicobacter organisms and is negative. The control stain showed appropriate reactivity. . B) An AB/PAS stain is performed to evaluate for fungal organisms, and is negative. A control stain shows appropriate reactivity. . * This test was developed and its performance characteristics determined by [employer]. It has not been cleared or approved by the U.S. Food and Drug Administration. The FDA has determined that such clearance or approval is not necessary. This test is used for clinical purposes. It should not be regarded as investigational or for research. . 02 Pathologist provided ICD-10: R13.10, K29.70, K21.9 . 02 CPT . 069466, 764938, V27504, 810091 Performed at: 01 [facility] [address] [address], [place], [place] [id number] MD Rene Olivera MD Phone: [phone] Performed at: 02 [facility] [id number] [place] [id number] MD Angeles Burr MD Phone: [phone]
[2020-06-05] MEDS: SODIUM CHLORIDE 0.9% 1,000 ML 100 ML IV (09:54)
--- NOTE | 2020-06-05 10:15 | PM.PREOP ---
Pre-operative Note COVID-19 COVID-19 status: Negative Interval Note History & Physical reviewed/Exam performed by Physician: Yes Changes to H&P: No ASA Class (for procedural sedation): II
--- NOTE | 2020-06-05 10:16 | PM.OP.ENDO ---
Operative Date/Time/Diagnoses Date of procedure: 06/05/20 Pre-op diagnosis: See indication and findings Procedure & Clinicians Study performed: EGD Same procedure as scheduled: Yes Indications: GE reflux and dysphagia in the cervical position Surgeon: Karthik Roth Procedure Notes Procedure in detail: After informed consent was obtained the patient was placed in left lateral decubitus position. The video upper scope was placed into the oropharynx and with the patient's help swallowed into the esophagus. The esophagus stomach and duodenum were carefully examined. On withdrawal retroflexed view the GE junction was performed. The scope was removed. The patient tolerated the procedure well. Blood loss none Complications none Sedation Total sedation time 11 minutes Versed 8 mg fentanyl 100 micro g IV titration Findings 1. Feline like esophagus in the mid esophagus. Biopsies taken to rule out eosinophilic esophagitis 2. LAC to D esophagitis between 35 and 38 cm. At least 75% of circumference involved. Old scarring also present. No clear stenosis. 3. 4 cm hiatal hernia without Ki lesions 4. Patchy erythema in the antrum biopsies taken to rule out Helicobacter 5. Peptic duodenitis in the bulb and D1. Multiple erosions seen. Tomy is to get on his Nexium and use it every day. We will be in touch about his pathology report. He will eventually need a follow-up endoscopy in 12 weeks to prove distal esophageal healing. He should have telehealth follow-up with me in 6-8 weeks.
[2020-06-05] MEDS: fentaNYL 250 MCG/5 ML INJ IV (10:45)
[2020-06-05] MEDS: MIDAZOLAM 5 MG/5 ML VIAL IV (10:45)
== END 2020-06-05 11:52 | disposition home or self-care (01) ==
PROVIDERS: PCP Physician Assistant Medical; Referring Provider Internal Medicine Gastroenterology; Visit Provider Internal Medicine Gastroenterology
PROC: 0DJ08ZZ Inspection of Upper Intestinal Tract, Via Natural or Artificial Opening Endoscopic (ICD-10-PCS; CPT 43235; principal; 2020-06-05 09:00)
DX: K29.50 Unspecified chronic gastritis without bleeding (principal); K44.9 Diaphragmatic hernia without obstruction or gangrene; K29.80 Duodenitis without bleeding; K21.00 Gastro-esophageal reflux disease with esophagitis, without bleeding
CPT/HCPCS: 43239; J2250; J3010

== ENCOUNTER → 2020-09-23 11:01 | Outpatient (CLI) | payer MEDICARE, OTHER, SELFPAY ==
[2020-09-23 14:33] LABS: COVID19 -Nasal RAPID Negative (Negative)
== END ==
PROVIDERS: PCP Physician Assistant Medical; Visit Provider Physician Assistant
DX: Z20.822 Contact with and (suspected) exposure to COVID-19 (principal)
CPT/HCPCS: 87635; C9803

== ENCOUNTER 2020-09-25 09:10 | Day surgery (SDC) | payer MEDICARE, OTHER, SELFPAY ==
[2020-09-25] VITALS (8 sets, daily range): BP systolic 137–152; BP diastolic 82–98; PULSE 66–69; RESP 11–18; TEMP 36.1–36.6; O2SAT 94–99; BMI 24.9
--- NOTE | 2020-09-25 | PATH_ITS ---
[facility] Accession Number: [id number] . 01 Material submitted: . esophagus - ESOPHAGUS . 01 Clinical history: . A: RULE OUT HYMAN'S . 02 Diagnosis: Esophagus, Biopsy: Proximal gastric-type mucosa with mild chronic inflammation. Negative for specialized intestinal metaplasia on AB/PAS stain. Negative for dysplasia or malignancy. [facility] 10/01/2020 1354 Local . 02 Electronically signed: . Constantin Lopez MD, PhD, Pathologist NPI- [id number] . 01 Gross description: . ESOPHAGUS: Received in formalin is 1 fragment(s) of sherman, soft tissue measuring 0.2 x 0.2 x 0.1 cm submitted entirely in 1 cassette(s) /CAMILA 09/27/2020 2318 Local . 02 Microscopic: . An AB/PAS stain is performed to evaluate for specialized intestinal metaplasia, and is negative for goblet cells. A control stain shows appropriate reactivity. . 02 Pathologist provided ICD-10: K20.80 . 02 CPT . 796262, 804149 Performed at: 01 [facility] [address], [place], [place] [id number] MD Rene Olivera MD Phone: [phone] Performed at: 02 [facility] [address] [place], [place] [id number] MD Angeles Burr MD Phone: [phone]
[2020-09-25] MEDS: SODIUM CHLORIDE 0.9% 1,000 ML 150 ML IV (09:59)
--- NOTE | 2020-09-25 10:28 | PM.HP.1 ---
History of Present Illness History of Present Illness Date Patient Seen: 09/25/20 Chief complaint: SDC Narrative: History of severe esophagitis need to check for complete healing Patient History Medical History (Updated 06/05/20 @ 09:36 by Angeles Lyons RN) Problems with swallowing Family & Social History Social History: household members spouse Tobacco & Substance use: Smoking Status Never smoker alcohol intake never Substance Use Type does not use Meds Home Medications and Allergies Home Medications Medication Instructions Recorded Confirmed Type albuterol sulfate [ProAir HFA] 2 puff INHALATION Q6H PRN 06/05/20 09/25/20 History fluticasone propion-salmeterol 1 inh INHALATION BID 06/05/20 09/25/20 History [Advair Diskus] esomeprazole magnesium 20 mg PO DAILY 09/25/20 09/25/20 History famotidine 20 mg PO BEDTIME 09/25/20 09/25/20 History phentermine 37.5 mg PO DAILY 09/25/20 09/25/20 History tadalafil 5 mg PO DAILY 09/25/20 09/25/20 History Allergies Allergy/AdvReac Type Severity Reaction Status Date / Time hydrocodone AdvReac Unknown NAUSEA/VOMI Verified 09/25/20 10:00 TING Exam Vital Signs (past 8 hours): - 09/25/20 10:06 Temperature 98 F Pulse Rate 67 Respiratory Rate 16 Blood Pressure 139/84 Pulse Oximetry 99 Oxygen Delivery Method Room Air Narrative Exam Narrative: Oropharynx free of lesions Chest clear to auscultation percussion Cardiac exam reveals no S3 or murmur Assessment & Plan Assessment & Plan narrative: History of severe esophagitis now on medication for several weeks rule out non healed esophagitis. Risks, benefits, alternatives have been explained. Quality MIPS - Admit Advanced Care Plan / Current Medications Measures: #47 ? Advanced Care Plan Clinician documentation instruction: document at admission. [] I confirmed that the patient's Advance Care Plan is present, code status is documented, or surrogate decision maker is listed in the patient?s medical record. [SATISFIES MIPS PERFORMANCE] If Yes, Stop Here [] The patient?s Advance Care plan is not present because: (select) [MIPS PERFORMANCE EXCEPTION/EXCLUSION] [] I confirmed today that the patient does not wish or was not able to name a surrogate decision maker or provide an Advance Care Plan. [] Hospice care is currently being provided or has been provided this calendar year [] I did NOT confirm today the presence of an Advance Care Plan or surrogate decision maker documented within the patient's medical record. [DOES NOT SATISFY MIPS PERFORMANCE] #130 - Documentation of Current Medications in the Medical Record Clinician documentation instruction: use macro the first time you see a patient. [] I have utilized all available immediate resources to obtain, update, or review the patient?s current medications. [SATISFIES MIPS PERFORMANCE] If Yes, Stop Here [] The patient is not eligible for medication reconciliation; the patient is in an emergent medical situation where delaying treatment would jeopardize the patient?s health. [MIPS PERFORMANCE EXCEPTION/EXCLUSION] [] I did NOT confirm, update or review the patient's current list of medications today. [DOES NOT SATISFY MIPS PERFORMANCE] MIPS - CL Central Venous Catheter Placement Measure: #76 ? Prevention of Central Venous Catheter (CVC) ? Related Bloodstream Infection Clinician documentation instruction: use macro every time you place a central line. [] All elements of Maximal Sterile Barrier Technique, including hand hygiene, skin prep, and sterile ultrasound technique (if used) were followed. [SATISFIES MIPS PERFORMANCE] If Yes, Stop Here [] If ?No?, the medical reason all elements were NOT used for medical reason [] (ex. emergent condition). [] Maximal Sterile Barrier Technique was not followed, no reason provided [DOES NOT SATISFY MIPS PERFORMANCE] MIPS - DC Heart Failure Measures: #5 - Heart Failure (HF): Angiotensin-Converting Enzyme (NGOC) Inhibitor or Angiotensin Receptor Tayla (ARB) Therapy for Left Ventricular Systolic Dysfunction (LVSD) and #8 - Heart Failure (HF): Beta-Tayla Therapy for Left Ventricular Systolic Dysfunction (LVSD) Clinician documentation instruction: use macro at every CHF discharge. [] The patient has current or prior documentation of left ventricular ejection fraction (LVEF) less than 40%, or moderate or severely depressed left ventricular systolic function. Answer both: [SATISFIES MIPS PERFORMANCE] [] The patient was prescribed or already taking an Angiotensin-Converting Enzyme (NGOC) Inhibitor, or Angiotensin Receptor Tayla (ARB). [] The patient was prescribed or already taking a beta-tayla. If Yes to Both, Stop Here [] Patient not prescribed/taking: [MIPS PERFORMANCE EXCEPTION/EXCLUSION] [] NGOC or ARB for medical/patient/system reason(s) including [] (ex. allergy, intolerance, contraindication) [] Beta-tayla for medical/patient/system reason(s) including [] (ex. allergy, intolerance, contraindication) [] Patient not prescribed/taking: [DOES NOT SATISFY MIPS PERFORMANCE] [] NGOC or ARB, no reason given [] Beta-tayla, no reason given
--- NOTE | 2020-09-25 10:29 | PM.OP.ENDO ---
Operative Date/Time/Diagnoses Date of procedure: 09/25/20 Pre-op diagnosis: See indication and findings Procedure & Clinicians Study performed: EGD Same procedure as scheduled: Yes Indications: History of severe esophagitis need to check for complete healing Surgeon: Karthik Roth Procedure Notes Procedure in detail: After informed consent was obtained the patient was placed in left lateral decubitus position. The video upper scope placed into the oropharynx and with the patient's help swelled into the esophagus. The esophagus stomach and duodenum were carefully examined. On withdrawal, retroflexed view the GE junction was performed. The scope was removed. The patient tolerated procedure well. Blood loss none Complications none Sedation Total sedation time 13 minutes Versed 9 mg fentanyl 100 micro g IV titration Findings 1. An island and then 1 tongue of what appears to be Grewal's esophagus above the gastric folds 1-1.5 cm. One set of biopsies taken to rule out Grewal's esophagus 2. 4 cm hiatal hernia from 38-42 cm 3. Striped gastric erythema previously biopsied and negative for Helicobacter 4. Normal duodenal bulb and sweep 5. Complete healing of peptic esophagitis Patient will remain on his current medications the will discuss tapering them once biopsies return.
[2020-09-25] MEDS: fentaNYL 250 MCG/5 ML INJ IV (10:37)
[2020-09-25] MEDS: MIDAZOLAM 5 MG/5 ML VIAL IV (10:46)
== END 2020-09-25 12:10 | disposition home or self-care (01) ==
PROVIDERS: PCP Family Medicine; Referring Provider Internal Medicine Gastroenterology; Visit Provider Internal Medicine Gastroenterology
PROC: 0DJ08ZZ Inspection of Upper Intestinal Tract, Via Natural or Artificial Opening Endoscopic (ICD-10-PCS; CPT 43235; principal; 2020-09-25 10:30)
DX: Z87.19 Personal history of other diseases of the digestive system (principal); J45.909 Unspecified asthma, uncomplicated; K44.9 Diaphragmatic hernia without obstruction or gangrene; K21.00 Gastro-esophageal reflux disease with esophagitis, without bleeding
CPT/HCPCS: 43239; J2250; J3010

== ENCOUNTER → 2020-11-07 15:52 | Outpatient (CLI) | payer MEDICARE, OTHER, SELFPAY ==
--- NOTE | 2020-11-07 | DI.MRI.S_ITS ---
PROCEDURE: MR FOOT RT WO/W CON INDICATIONS: PAIN IN RIGHT FOOT TECHNIQUE: Noncontrast coronal T1 spin echo and STIR, sagittal T1 spin echo with fat saturation and STIR, axial T1 spin echo and T2 fast spin echo with fat saturation. After the administration of contrast, axial/sagittal/coronal T1 spin echo with fat saturation through the right foot . COMPARISON: [facility], RG, FOOT COMP MIN 3VW (RT), 08/30/2020, 12:55. [facility], RG, FOOT COMP MIN 3VW (RT), 09/16/2020, 16:23. FINDINGS: Image quality: Excellent. Bones: Radiographically occult stress fracture involving the base of the 3rd metatarsal. There is extensive marrow edema, ill-defined sclerosis and partial callus formation. Surrounding reactive soft tissue edema. The remaining metatarsals appear grossly intact. There is nondisplaced low signal intensity fracture line seen on image 17/8.. 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 There is associated reactive enhancement. The visualized flexor and extensor tendons appear grossly unremarkable. Hallux sesamoid marrow signal intensity within normal limits. IMPRESSION: Acute on chronic 3rd metatarsal base stress fracture as detailed above. Prominent reactive surrounding soft tissue edema Dictated by: Mark Figueroa M.D. on 11/07/2020 at 17:08 Approved by: Mark Figueroa M.D. on 11/07/2020 at 17:15
== END ==
PROVIDERS: PCP Family Medicine; Referring Provider Podiatrist; Visit Provider Podiatrist
DX: M79.671 Pain in right foot (principal); M84.374A Stress fracture, right foot, initial encounter for fracture; X58.XXXA Exposure to other specified factors, initial encounter
CPT/HCPCS: 73720

== ENCOUNTER → 2021-01-31 11:13 | Outpatient (CLI) | payer MEDICARE, OTHER, SELFPAY ==
--- NOTE | 2021-01-31 | DI.MRI.S_ITS ---
PROCEDURE: MR FOOT RT WO/W CON INDICATIONS: Stress fracture, right foot TECHNIQUE: Noncontrast sagittal T1 spin echo and T2 fast spin echo with fat saturation, long-axis T1 spin echo and T2 fast spin echo with fat saturation; short-axis T1 spin echo, proton density fast spin echo, and T2 fast spin echo with fat saturation through the forefoot. Post-contrast short axis, long axis, and sagittal T1 spin echo with fat saturation through the forefoot. COMPARISON: [facility], , MR FOOT RT WO/W CON, 11/07/2020, 16:07. FINDINGS: Image quality: Excellent. Bones and joints: Compared to prior study, there is persistent marrow edema in proximal to mid 3rd metatarsal shaft with transverse fracture line again seen involving proximal shaft of 3rd metatarsal bone with callus formation at fracture site. No new fracture or marrow edema is seen. Osteoarthritic changes are noted at 1st MTP joint and 1st through 5th interphalangeal joints. No suspicious intraosseous lesion. Soft tissues: Mild soft tissue edema and enhancement surrounding 3rd metatarsal shaft fracture site is seen. No other area of abnormal soft tissue enhancement. The visualized plantar foot muscles demonstrate normal signal and bulk. Visualized flexor and extensor tendons appear intact, without tenosynovitis. The distal insertions of the peroneus brevis and longus tendons appear intact. The principal Lisfranc ligament appears intact. No soft tissue ganglion cysts or bursal fluid collections. Sagittal images demonstrate no evidence for plantar plate tears. IMPRESSION: 1. Subacute stress fracture involving 3rd metatarsal base/proximal shaft with persistent marrow edema and mild surrounding soft tissue swelling. No new fracture or dislocation. 2. No other area of abnormal contrast enhancement. Extensor and flexor tendons are intact. Lisfranc ligament and joint is intact. Dictated by: Scott Og M.D. on 01/31/2021 at 13:38 Approved by: Scott Og M.D. on 01/31/2021 at 13:41
== END ==
PROVIDERS: PCP Family Medicine; Referring Provider Podiatrist; Visit Provider Podiatrist
DX: M84.374G Stress fracture, right foot, subsequent encounter for fracture with delayed healing (principal)
CPT/HCPCS: 73720

== ENCOUNTER → 2021-09-04 16:00 | Outpatient (CLI) | payer MEDICARE, OTHER, SELFPAY ==
--- NOTE | 2021-09-04 | DI.MRI.S_ITS ---
PROCEDURE: MR KNEE LT WO CON INDICATIONS: MEDIAL MENISCUS TEAR LEFT KNEE TECHNIQUE: Noncontrast sagittal PD fast spin echo and T2 fast spin echo with fat saturation, sagittal 3-D FLASH with fat saturation; coronal T1 spin echo and PD fast spin echo with fat saturation, and axial PD fast spin echo with fat saturation through the knee. COMPARISON: [facility], MR, MR KNEE LT WO CON, 04/25/2019, 8:47. FINDINGS: Image quality: Excellent. Menisci: Patient is status post interval partial medial meniscectomy. Signal abnormality involving posterior horn remanent of medial meniscus extending to inferior articulating surface which may represent postsurgical changes versus recurrent tear. There is no focal lateral meniscal tear. The meniscal root ligaments appear intact. Cruciate ligaments: The anterior and posterior cruciate ligaments appear intact. Medial structures: The medial collateral ligament appears intact. The posterior oblique ligament, semimembranosus tendon insertions, oblique popliteal ligament, and meniscocapsular junction appear intact. Visualized portions of the pes anserinus tendons appear normal. No abnormal bursal fluid. Lateral structures: The lateral collateral ligament, long and short heads of the biceps femoris tendon appear intact. The popliteus tendon appears normal; the popliteofibular ligament appears intact. The posterosuperior and anteroinferior popliteomeniscal fascicles appear intact. The arcuate and fabellofibular ligaments appear intact, on either side of the lateral inferior geniculate artery. Iliotibial band appears normal. Anterior structures: The quadriceps and patellar tendons appear intact. Patellar alignment is normal. No femoral trochlear dysplasia or ventral trochlear prominence. No edema in the infrapatellar fat pad. 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 No fracture or dislocation. No suspicious intraosseous lesion. Articulating cartilages in lateral femoral tibial compartment and patellofemoral compartment are intact. Joint space: There is small amount of joint fluid. Small popliteal cyst is seen. Normal appearing synovial plicae are incidentally noted. IMPRESSION: 1. There is prior partial medial meniscectomy with postsurgical changes. Signal abnormality involving posterior horn remanent of medial meniscus extending to inferior articulating surface concerning for recurrent tear versus postsurgical signal change. Lateral meniscus is intact. 2. Cruciate ligaments are intact. 3. 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 No fracture or dislocation. Small amount of joint fluid and a small popliteal cyst. Dictated by: Scott Og M.D. on 09/05/2021 at 8:16 Approved by: Scott Og M.D. on 09/05/2021 at 9:07
== END ==
PROVIDERS: PCP Family Medicine; Referring Provider Family Medicine; Visit Provider Family Medicine
DX: M23.204 Derangement of unspecified medial meniscus due to old tear or injury, left knee (principal); M71.22 Synovial cyst of popliteal space [Baker], left knee; M17.12 Unilateral primary osteoarthritis, left knee; M94.262 Chondromalacia, left knee
CPT/HCPCS: 73721

== ENCOUNTER → 2021-09-06 10:57 | Outpatient (CLI) | payer MEDICARE, OTHER, SELFPAY ==
--- NOTE | 2021-09-06 | DI.RAD.S_ITS ---
PROCEDURE: XR CHEST 3V INDICATIONS: COUGH TECHNIQUE: 2 views of the chest were acquired. COMPARISON: None. FINDINGS: Surgical changes and devices: None. Lungs and pleura: Lungs are clear. No pleural effusions or pneumothorax. Mediastinum: Mediastinal contours are normal. Heart size is normal. Bones and chest wall: No suspicious bony abnormalities. Soft tissues appear unremarkable. IMPRESSION: No evidence acute pulmonary process. Dictated by: Harjeet Beach M.D. on 09/06/2021 at 12:33 Approved by: Harjeet Beach M.D. on 09/06/2021 at 12:33
== END ==
PROVIDERS: PCP Family Medicine; Referring Provider Physician Assistant; Visit Provider Physician Assistant
DX: R05.9 Cough, unspecified (principal); R06.02 Shortness of breath; J45.909 Unspecified asthma, uncomplicated
CPT/HCPCS: 71047

== ENCOUNTER → 2021-09-19 09:27 | Outpatient (CLI) | payer MEDICARE, OTHER, SELFPAY ==
[2021-09-19 10:21] LABS: COVID19 -Nasal RAPID Negative (Negative)
== END ==
PROVIDERS: PCP Family Medicine; Referring Provider Internal Medicine; Visit Provider Internal Medicine
DX: Z20.822 Contact with and (suspected) exposure to COVID-19 (principal)
CPT/HCPCS: 87635; C9803

== ENCOUNTER → 2021-09-19 09:41 | Outpatient (CLI) | payer MEDICARE, OTHER, SELFPAY ==
--- NOTE | 2021-09-24 10:38 | PM.PFT.1 ---
Pulmonary Function Test Referral & Results Date Patient Seen: 09/19/21 Requesting provider: Chinedu Singh Results: The spirometry demonstrates an FVC of 2.8 0 L which is [] of predicted. The FEV1 was measured at 2.21 L which is 54% of predicted. The FEV1/FVC ratio was 79 which is 106% of predicted. Interpretation: This study demonstrates perhaps mild obstructive lung disease based on reduction FEV1 and shape a flow volume loop. However FEV1/FVC ratio remains normal Clinical correlation suggested Charges Tests/bronchodilator: Spirometry: without bronchodilator
== END ==
PROVIDERS: PCP Family Medicine; Referring Provider Physician Assistant; Visit Provider Physician Assistant
DX: J45.909 Unspecified asthma, uncomplicated (principal); R05.9 Cough, unspecified; R06.02 Shortness of breath; Z20.822 Contact with and (suspected) exposure to COVID-19
CPT/HCPCS: 87635; 94010; C9803